=== PATIENT | female | born 1960 | race Caucasian/White ===

== ENCOUNTER 2016-06-07 12:06 | Emergency (ER) | payer OTHER ==
[~2016-06-07] VITALS: Ht 157.5 cm; Wt 65.3 kg
[2016-06-07 13:52] LABS: HEMATOCRIT 39.9 % (36.0-46.0); MCHC 33.6 G/DL (30.0-36.0); MCV 83.3 FL (83-99); MEAN PLAT.VOLUME 9.7 uM^3 (9.5-12.4); PLATELET COUNT 243 K/uL (156-360); RBC DIS.WIDTH-CV 13.1 % (11.8-14.6); RBC DIS.WIDTH-SD 40.1 % (39-53); RED BLOOD COUNT 4.79 M/uL (3.80-5.20); WHITE BLOOD COUNT 6.3 K/uL (4.1-10.2)
[2016-06-07 14:01] LABS: CHLORIDE 103 mEq/L (99-109); POTASSIUM 2.7 mEq/L (3.7-5.4); SODIUM 143 mEq/L (136-147)
[2016-06-07 14:02] LABS: GLUCOSE 99 mg/dL (70-99)
[2016-06-07 14:04] LABS: ANION GAP 16 MEQ/L (2-14)
[2016-06-07 14:06] LABS: GFR ESTIMATE (CALCULATED) > 59 mL/min/
[2016-06-07 14:07] LABS: UREA NITROGEN (BUN) 17 mg/dL (9-23)
[2016-06-07] MEDS ORDERED: TENORETIC 501 TABLET PO (16:10)
[2016-06-07] MEDS ORDERED: K-DUR10 MEQ PO (16:15)
[2016-06-07] MEDS ORDERED: CRANBERRY TABL1 EACH PO (16:15)
[2016-06-07] MEDS ORDERED: CLARITIN,ALAVAR10 MG PO (16:16)
[2016-06-07 16:50] LABS: CHLORIDE 110 mEq/L (99-109); POTASSIUM 3.1 mEq/L (3.7-5.4); SODIUM 144 mEq/L (136-147)
[2016-06-07 16:52] LABS: GLUCOSE 77 mg/dL (70-99)
[2016-06-07 16:53] LABS: ANION GAP 12 MEQ/L (2-14)
[2016-06-07 16:55] LABS: GFR ESTIMATE (CALCULATED) > 59 mL/min/
[2016-06-07 16:56] LABS: UREA NITROGEN (BUN) 16 mg/dL (9-23)
[2016-06-07 17:06] VITALS: BP 111/66
== END 2016-06-07 17:06 | disposition short-term general hospital (02) ==
LOC: EME 12:06
PROVIDERS: Nurse Practitioner Family
PROC: 0DJ08ZZ Inspection of Upper Intestinal Tract, Via Natural or Artificial Opening Endoscopic (ICD-10-PCS; principal; 2016-06-07)
PROC: 0DC38ZZ Extirpation of Matter from Lower Esophagus, Via Natural or Artificial Opening Endoscopic (ICD-10-PCS; principal; 2016-06-07)
DX: T18.128A Food in esophagus causing other injury, initial encounter (principal); S27.813A Laceration of esophagus (thoracic part), initial encounter; X58.XXXA Exposure to other specified factors, initial encounter; I10 Essential (primary) hypertension; E87.6 Hypokalemia; R13.10 Dysphagia, unspecified
CPT/HCPCS: 71250; 80048; 80048 91; 85027; 93005; 99281; 99285; J0330; J1100; J2250; J2405; J3480; J7030